=== PATIENT | male | born 1970 | race Caucasian/White ===

== ENCOUNTER 2022-03-26 22:23 | Inpatient (IN) | payer BC, OTHER ==
[2022-03-26 22:51] LABS: Basophils % (A) 0 %; Eosinophils # (A) 0.4 k/uL (0-0.7); Eosinophils % (A) 4 %; HCT 43.7 % (39.0-53.0); HGB 15.7 gm/dL (13.0-17.5); Lymphocytes # (A) 3.1 k/uL (1.0-4.8); Lymphocytes % (A) 32 %; MCH 31.3 pg (25.0-35.0); MCHC 35.9 g/dL (31.0-37.0); MCV 87.3 fL (80.0-100.0); Mean Platelet Volume 7.8; Monocytes # (A) 0.5 k/uL (0-1.0); Monocytes % (A) 5 %; Neutrophils # (A) 5.6 k/uL (1.3-7.7); Neutrophils % (A) 58 %; Platelet Count 172 k/uL (150-450); RDW 12.3 % (11.5-15.5); WBC 9.6 k/uL (3.8-10.6)
[2022-03-26 23:09] LABS: Albumin 4.3 g/dL (3.5-5.0); Calcium 9.4 mg/dL (8.4-10.2); Magnesium 1.8 mg/dL (1.6-2.3); Potassium 3.7 mmol/L (3.5-5.1); Total Bilirubin 0.3 mg/dL (0.2-1.3); Total Protein 6.7 g/dL (6.3-8.2)
[2022-03-26 23:13] LABS: INR 0.9 (<1.2); Partial Thromboplastin Time 25.8 sec (22.0-30.0)
--- NOTE | 2022-03-26 23:37 | XR ---
EXAMINATION TYPE: XR chest 2V DATE OF EXAM: 03/26/2022 COMPARISON: NONE HISTORY: Pain TECHNIQUE: 2 view FINDINGS: Heart and mediastinum are normal. Lungs are clear. Diaphragm is normal. Bony thorax is inta ct. There are chest leads. IMPRESSION: No active cardiopulmonary disease. Normal heart.
[2022-03-27] MEDS ORDERED: NITROGLYCERIN SL TABS 0.4 MG TAB SUBLINGUAL PRN ×2 (00:12→09:38)
--- NOTE | 2022-03-27 00:12 | ED ---
Chest Pain HPI - General Chief Complaint: Chest Pain Stated Complaint: Chest pain Time Seen by Provider: 03/26/22 22:26 Source: patient, EMS Mode of arrival: EMS Limitations: no limitations - History of Present Illness Initial Comments: This patient is a 52-year-old man who presents with complaint of chest pain. Patient states for the the past 4 nights he has been having pains every time he rides his stationary bike. Patient states his usual routine is to ride a bike following work. He states that 4 days ago he rode for about 5 minutes and then had substernal chest pain radiating to his back dyspnea and diaphoresis. He had to rest and it resolved. The next night he was able to ride about 10 minutes but had similar symptoms. With tonakash's episode, he states that the symptoms were much worse and lasting longer. Family then called EMS and brought him here. The patient states that the symptoms have somewhat resolved. MD Complaint: chest pain Onset/Timin -: days(s) Onset: during exertion Pain Location: substernal Pain Radiation: back Severity: severe Quality: aching Consistency: now resolved Improves With: rest Worsens With: exertion Anginal Symptoms: diaphoresis, dyspnea Treatments Prior to Arrival: aspirin - Related Data Allergies Allergy/AdvReac Type Severity Reaction Status Date / Time No Known Allergies Allergy Verified 03/26/22 22:28 Review of Systems ROS Statement: Those systems with pertinent positive or pertinent negative responses have been documented in the HPI. ROS Other: All systems not noted in ROS Statement are negative. Constitutional: Denies: fever, chills Respiratory: Reports: as per HPI. Denies: cough, dyspnea, wheezes, hemoptysis Cardiovascular: Reports: as per HPI, chest pain, dyspnea on exertion. Denies: palpitations, edema, syncope Gastrointestinal: Denies: abdominal pain, nausea, vomiting, diarrhea Genitourinary: Denies: dysuria, hematuria Musculoskeletal: Denies: back pain Skin: Denies: rash Neurological: Denies: headache, weakness, numbness Hematological/Lymphatic: Denies: easy bleeding EKG Findings - EKG Results: EKG: interpreted by [place], sinus rhythm (Rate 67 bpm), normal axis, normal QRS - Blocks, [place], Hypertrophy, ST Abn: Repolarization changes or abnormalities: ST or T wave suggestive of ischemia (T inversions in lead V3 and V4) Past Medical History Past Medical History: No Reported History History of Any Multi-Drug Resistant Organisms: None Reported Past Surgical History: No Surgical Hx Reported Past Psychological History: No Psychological Hx Reported Smoking Status: Current every day smoker Past Alcohol Use History: Occasional Past Drug Use History: Marijuana General Exam Limitations: no limitations General appearance: alert, in no apparent distress Head exam: Present: atraumatic, normocephalic Eye exam: Present: normal appearance. Absent: scleral icterus, conjunctival injection Neck exam: Present: normal inspection Respiratory exam: Present: normal lung sounds bilaterally. Absent: respiratory distress, wheezes, rales, rhonchi, stridor, chest wall tenderness, accessory muscle use Cardiovascular Exam: Present: regular rate, normal rhythm, normal heart sounds. Absent: systolic murmur, diastolic murmur, rubs, gallop GI/Abdominal exam: Present: soft. Absent: distended, tenderness, guarding, rebound, rigid, mass, pulsatile mass, hernia Extremities exam: Present: normal inspection, normal capillary refill. Absent: pedal edema, calf tenderness Back exam: Present: normal inspection. Absent: CVA tenderness (R), CVA tenderne ss (L) Neurological exam: Present: alert Skin exam: Present: warm, dry, intact, normal color. Absent: rash Course Vital Signs 03/26/22 03/26/22 03/27/22 22:29 22:43 00:01 Temperature 97.6 F Pulse Rate 73 64 64 Respiratory 18 18 16 Rate Blood Pressure 170/112 169/106 141/92 O2 Sat by Pulse 97 99 99 Oximetry Chest Pain [facility] Patient is 52-year-old man here with what sounds like reproducible angina. He is markedly hypertensive on arrival and radiation of the pain to the back prompted computed tomography scan to rule out dissection. Symptoms have resolved shortly after his workup started here. Patient will be admitted for serial enzymes, telemetry monitoring, cardiology consultation. Disposition Clinical Impression: Chest pain, Hypertension Disposition: ADMITTED IP TO THIS HOSP Condition: Good Instructions (If sedation given, give patient instructions): Chest Pain (ED) Is patient prescribed a controlled substance at d/c from ED?: No Referrals: Antwan Pereira DO [Primary Care Provider] - 1-2 days
--- NOTE | 2022-03-27 00:14 | CT ---
EXAM: CT Angiography Chest With Intravenous Contrast CLINICAL HISTORY: ITS.REASON CT Reason: chest pain/hypertension, ?dissection TECHNIQUE: Axial computed tomographic angiography images of the chest with intravenous contrast. CTDI is 14.59 mGy and DLP is 793 mGy-cm. This CT exam was performed using one or more of the following dose reduction techniques: automated exposure control, adjustment of the mA and/or kV according to patient size, and/or use of iterative reconstruction technique. MIP reconstructed images were created and reviewed. COMPARISON: No relevant prior studies available. FINDINGS: Limitations: Bilateral lung apices are excluded from the [id number]. Pulmonary arteries: No pulmonary embolism. Aorta: No acute findings. No thoracic aortic aneurysm. Lungs: No consolidation. Mild bilateral atelectasis. Subcentimeter pleural-based nodule in lingula is compatible with a lymph node. No suspicious pulmonary nodule. Pleural space: No significant effusion. No pneumothorax. Heart: Coronary artery calcification. Mediastinum: Small hiatal hernia. Bones/joints: No acute abnormality Soft tissues: No significant abnormality. Lymph nodes: See above. IMPRESSION: No acute CT findings in the chest. No thoracic aortic aneurysm or dissection. No pulmonary embolus. EXAM: CT Angiography Abdomen and Pelvis With Intravenous Contrast CLINICAL HISTORY: ITS.REASON CT Reason: chest pain/hypertension, ?dissection TECHNIQUE: Axial computed tomographic angiography images of the abdomen and pelvis with intravenous contrast. CTDI is 14.59 mGy and DLP is 793 mGy-cm. This CT exam was performed using one or more of the following dose reduction techniques: automated exposure control, adjustment of the mA and/or kV according to patient size, and/or use of iterative reconstruction technique. MIP reconstructed images were created and reviewed. COMPARISON: No relevant prior studies available. FINDINGS: VASCULATURE: Aorta: No acute findings. No abdominal aortic aneurysm. No dissection. Celiac trunk and mesenteric arteries: No acute findings. No occlusion or significant stenosis. Renal arteries: No acute findings. No occlusion or significant stenosis. Iliac arteries: No acute findings. No occlusion or significant stenosis. Lung bases: Please see dedicated chest CT report for details of intrathoracic findings. ABDOMEN: Liver: Subcentimeter focus of hypoattenuation in the liver is too small to characterize. Gallbladder and bile ducts: No significant abnormality. No calcified stones. No ductal dilation. Pancreas: No significant abnormality. No ductal dilation. Spleen: No significant abnormality. No splenomegaly. Adrenals: No significant abnormality. Kidneys and ureters: Prominent bilateral extrarenal pelves. No hydronephrosis. Stomach and bowel: No significant abnormality. No obstruction. PELVIS: Appendix: No findings to suggest acute appendicitis. Bladder: No significant abnormality. No mass. Reproductive: Unremarkable as visualized. ABDOMEN and PELVIS: Intraperitoneal space: No significant abnormality. No significant fluid collection. No free air. Bones/joints: No acute fracture. Soft tissues: Small fat-containing periumbilical hernia. Lymph nodes: No significant abnormality. No enlarged lymph nodes. IMPRESSION: No acute CT findings in the abdomen or pelvis. No abdominal aortic aneurysm or dissection.
[2022-03-27] MEDS ORDERED: ATORVASTATIN 80 MG TAB PO STA (03:07)
[2022-03-27] MEDS ORDERED: ASPIRIN 81 MG PO STA (03:08)
[2022-03-27] MEDS: NITROGLYCERIN OINT 1 INCH/GM PACKET TOPICAL SCH ×2 (03:14→05:30)
[2022-03-27] MEDS ORDERED: HEPARIN SODIUM 1,000 UN/ML (10ML VL) IV ONE (07:20)
[2022-03-27] MEDS ORDERED: HEPARIN SODIUM 1,000 UN/ML (10ML VL) IV PRN (07:20)
[2022-03-27] MEDS ORDERED: ALPRAZolam 0.25 MG TAB PO PRN (07:39)
[2022-03-27] MEDS ORDERED: ALPRAZolam 0.5 MG TAB PO PRN (07:39)
[2022-03-27] MEDS: SODIUM CHLORIDE 0.9% 1,000 ML in EMPTY BAG 1 BAG IV SCH (07:56)
[2022-03-27] MEDS: HEPARIN SOD,PORK IN 0.45% NACL 25,000 UNIT in 0.45% NACL 1 250ML.BAG IV SCH (08:08)
[2022-03-27] MEDS ORDERED: VERAPAMIL 2.5 MG/ML 2 ML AMP ONE (08:16)
[2022-03-27] MEDS ORDERED: HEPARIN SODIUM 1,000 UN/ML (10ML VL) ONE (08:17)
[2022-03-27] MEDS ORDERED: fentaNYL (PF) 50 MCG/ML 2 ML AMP ONE (08:17)
[2022-03-27 08:22] LABS: INR 0.9 (<1.2)
[2022-03-27 08:23] LABS: Partial Thromboplastin Time 25.1 sec (22.0-30.0)
[2022-03-27] MEDS ORDERED: SODIUM CHLORIDE 0.9% 1,000 ML IV ONE (08:37)
[2022-03-27] MEDS ORDERED: MIDAZOLAM 2 MG/2 ML VIAL IVP ONE (08:40)
[2022-03-27] MEDS ORDERED: fentaNYL (PF) 50 MCG/ML 2 ML AMP IVP ONE (08:40)
[2022-03-27] MEDS ORDERED: ASPIRIN 81 MG ONE (08:42)
[2022-03-27] MEDS ORDERED: LIDOCAINE 1% INJ 10MG/ML (30 ML VIAL-PF) SQ ONE (08:42)
[2022-03-27] MEDS ORDERED: VERAPAMIL SYRINGE (5 MG/10 ML) INTRAARTER ONE (08:43)
[2022-03-27] MEDS ORDERED: HEPARIN SODIUM 1,000 UN/ML (10ML VL) IVP ONE ×2 (08:45→08:57)
--- NOTE | 2022-03-27 08:47 | P.CRDCN ---
History of Present Illness History of present illness: HISTORY OF PRESENTING ILLNESS This is a pleasant 52-year-old male past medical history significant for chronic nicotine dependence. 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 We have been asked to see in consultation for chest pain. Patient presents to the emergency department with worsening chest discomfort. He states on Wednesday his chest discomfort began when he was riding a stationary bike at home. He states within 3 minutes he had midsternal chest discomfort, radiating to bilateral arms. He states it resolved with rest and did not recur. However over the past week he has been having increased chest discomfort with exercise with relief with rest and has noticed it has gradually increased in intensity and lasted longer after exercise. Yesterday he was riding his stationary bike, had midsternal chest discomfort, radiating to his back and bilateral arms. He had associated diap horesis and shortness of breath. He states that it improved with rest. He denies any history of CAD, [place], stroke, seizures, hypertension, diabetes. He denies any family history of coronary disease, he states his father has a history of hypertension. He is a current every day smoker. Denies any alcohol or illicit drug use. DIAGNOSTICS * EKG reveals sinus rhythm, heart rate 67, T wave inversions in leads V2-V5. No prior EKGs to compare. * Telemetry tracings indicate sinus rhythm * Chest xray no acute cardiopulmonary process * Thoracic CT reported no abnormalities. * In 2017 patient did have a exercise stress test in the office which was negative for stress-induced ischemia. * Echocardiogram in 2017 revealed EF of 55%, mild mitral regurgitation, mild tricuspid regurgitation * Laboratory reviewed, troponin negative, repeat 0.10, 0.06, sodium 136, potassium 3.7, BUN 14, serum creatinine 1.2, magnesium 1.8, CBC unremarkable * Current home medications include none REVIEW OF SYSTEMS At the time of my exam: CONSTITUTIONAL: Denies fever or chills. CARDIOVASCULAR: Denies chest pain, shortness of breath, orthopnea, PND or palpitations. RESPIRATORY: Denies cough. GASTROINTESTINAL: Denies abdominal pain, diarrhea, constipation, nausea or vomiting. MUSCULOSKELETAL: Denies myalgias. NEUROLOGIC: Denies numbness, tingling, headacbe or weakness. ENDOCRINE: Denies fatigue, weight change, polydipsia or polyurina. GENITOURINARY: Denies burning, hematuria or urgency with micturation. HEMATOLOGIC: Denies history of anemia or bleeding. PHYSICAL EXAMINATION Blood pressure 121/81, heart 65, afebrile, saturations 95% on room air CONSTITUTIONAL: No apparent distress. HEENT: Head is normocephalic. Pupils are equal, round. Sclerae anicteric. Mucous membranes of the mouth are moist. No JVD. No carotid bruit. CHEST EXAMINATION: Lungs are clear to auscultation. No chest wall tenderness is noted on palpation or with deep breathing. HEART EXAMINATION: Regular rate and rhythm. S1, S2 heard. No murmurs, gallops or rub. ABDOMEN: Soft, nontender. Positive bowel sounds. EXTREMITIES: 2+ peripheral pulses, no lower extremity edema and no calf tenderness. NEUROLOGIC EXAMINATION: Patient is awake, alert and oriented x3. ASSESSMENT NSTEMI Chronic nicotine dependence PLAN IV heparin Aspirin, statin Check Lipid panel and hemoglobin A1C Obtain 2D echocardiogram and doppler study to assess cardiac structure and function. Plan for cardiac catheterization today with Dr. Cuba. I have discussed the risks, benefits and alternative therapies for the above- mentioned procedure and for both sedation/analgesia as well as necessary blood product administration, if indicated, as they pertain to this patient. The patient has indicated understanding and acceptance of the risks and procedures discussed. Questions have been answered appropriately and he is agreeable to move forward with the above-stated procedure. Smoking cessation discussed with the patient and highly recommended. Further recommendations based on clinical course Nurse practitioner note has been reviewed by physician. Signing provider agrees with the documented findings, assessment, and plan of care. Past Medical History Past Medical History: No Reported History History of Any Multi-Drug Resistant Organisms: None Reported Past Surgical History: No Surgical Hx Reported Past Psychological History: No Psychological Hx Reported Smoking Status: Current every day smoker Past Alcohol Use History: Occasional Past Drug Use History: Marijuana Medications and Allergies Home Medications Medication Instructions Recorded Confirmed Type Cholecalciferol [Vitamin D3 (25 50 mcg PO DAILY 03/27/22 03/27/22 History Mcg = 1000 Iu)] Glucosamine/Chondr Ramos A Sod [Osteo 1 tab PO DAILY 03/27/22 03/27/22 History Bi-Flex Caplet] Turmeric Root Extract [Turmeric] 500 mg PO DAILY 03/27/22 03/27/22 History Allergies Allergy/AdvReac Type Severity Reaction Status Date / Time No Known Allergies Allergy Verified 03/27/22 07:31 Physical Exam Vitals: Vital Signs Temp Pulse Pulse Resp BP BP Pulse Ox 03/27/22 02:38 97.5 F L 64 17 136/89 95 03/27/22 01:21 98.1 F 60 16 125/89 99 03/27/22 00:01 64 16 141/92 99 03/26/22 22:43 64 18 169/106 99 03/26/22 22:29 97.6 F 73 18 170/112 97 Intake and Output 03/26/22 03/27/22 03/27/22 22:59 06:59 14:59 Other: # Voids 1 Weight 92.533 kg 92.533 kg Results 03/26/22 22:40 03/26/22 22:40 Cardiac Enzymes 03/26/22 03/26/22 03/27/22 Range/Units 22:40 22:40 01:28 AST 26 (17-59) U/L Troponin I 0.014 0.106 H* (0.000-0.034) ng/mL 03/27/22 Range/Units 06:24 AST (17-59) U/L Troponin I 0.066 H* (0.000-0.034) ng/mL Coagulation 03/26/22 Range/Units 22:40 PT 10.0 (9.0-12.0) sec APTT 25.8 (22.0-30.0) sec CBC 03/26/22 Range/Units 22:40 WBC 9.6 (3.8-10.6) k/uL RBC 5.00 (4.30-5.90) m/uL Hgb 15.7 (13.0-17.5) gm/dL Hct 43.7 (39.0-53.0) % Plt Count 172 (150-450) k/uL Comprehensive Metabolic Panel 03/26/22 Range/Units 22:40 Sodium 136 L (137-145) mmol/L Potassium 3.7 (3.5-5.1) mmol/L Chloride 102 (98-107) mmol/L Carbon Dioxide 23 (22-30) mmol/L BUN 14 (9-20) mg/dL Creatinine 1.23 (0.66-1.25) mg/dL Glucose 168 H (74-99) mg/dL Calcium 9.4 (8.4-10.2) mg/dL AST 26 (17-59) U/L ALT 24 (4-49) U/L Alkaline Phosphatase 84 (38-126) U/L Total Protein 6.7 (6.3-8.2) g/dL Albumin 4.3 (3.5-5.0) g/dL Current Medications Generic Name Dose Route Start Last Admin Trade Name Freq PRN Reason Stop Dose Admin Aspirin 325 mg 03/28/22 09:00 03/27/22 03:10 Aspirin 325 Mg Tab PO Not Given DAILY [facility] Heparin Sodium (Porcine) 0 unit 03/27/22 07:20 Heparin Sodium 1,000 Un/Ml (10ml Vl) IV PER PROTOCOL PRN Low PTT Protocol Heparin Sodium/Sodium Chloride 250 mls @ 10.003 mls/hr 03/27/22 07:30 25,000 unit/ Sodium Chloride IV .Q24H [facility] Protocol 10.81 UNITS/KG/HR Nitroglycerin 0.4 mg 03/27/22 00:12 Nitroglycerin Sl Tabs 0.4 Mg Tab SUBLINGUAL Q5M PRN Chest Pain Nitroglycerin 1 inch 03/27/22 03:06 03/27/22 05:30 Nitroglycerin Oint 1 Inch/Gm Packet TOPICAL Not Given Q6HR [facility] Intake and Output 03/26/22 03/27/22 03/27/22 22:59 06:59 14:59 Other: # Voids 1 Weight 92.533 kg 92.533 kg 03/26/22 22:40 03/26/22 22:40
[2022-03-27] MEDS ORDERED: PRASUGREL 10 MG TAB ONE (08:50)
[2022-03-27] MEDS ORDERED: PRASUGREL 10 MG TAB PO ONE (08:53)
[2022-03-27] MEDS ORDERED: NITROGLYCERIN 1000MCG/10ML SYRINGE INTRACORON ONE ×2 (09:00→09:06)
[2022-03-27] MEDS ORDERED: IOPAMIDOL-370 125ML BTL INJ ONE (09:11)
[2022-03-27] MEDS ORDERED: MAG HYDROX/AL HYDROX/SIMETH 30 ML CUP PO PRN (09:38)
[2022-03-27] MEDS ORDERED: ZOLPIDEM 5 MG TAB PO PRN (09:38)
[2022-03-27] MEDS ORDERED: RX INFO: IV CONTRAST WAS GIVEN 1 EACH MISC MISCELLANE PRN (09:38)
[2022-03-27] MEDS ORDERED: ATROPINE SULFATE 0.1 MG/ML 10ML SYRINGE IV PRN (09:38)
--- NOTE | 2022-03-27 09:38 | P.PRCINT ---
Percutaneous Coronary Int. - Percutaneous Coronary Intervention Percutaneous Coronary Intervention: PROCEDURES PERFORMED: Left heart catheterization, bilateral coronary angiography, PCI mid LAD with a 3.5 x 12mm Xience JANES INDICATION: Non-STEMI CONSENT:I have discussed the risks, benefits and alternative therapies for the above-mentioned procedure and for both sedation/analgesia as well as necessary blood product administration, if indicated, as they pertain to this patient. The patient has indicated understanding and acceptance of the risks and procedures discussed. PROCEDURE: After the risks, benefits and alternatives of the above mentioned procedure explained in detail with the patient, informed consent was obtained. Patient was taken to the catheterization lab and prepped and draped in usual fashion. 1% lidocaine was used to anesthetize the right radial artery. A 6- Scottish sheath was placed in the right radial artery using modified Seldinger technique. Left coronary angiography was performed with a 5-Scottish JL 3.5 catheter and right coronary angiography was performed with a 5-Scottish AR2 cath eter in various views. A 5-Scottish FR5 catheter was inserted into the left ventricle and pressure measurements were obtained. The decision was made to perform PCI of LAD. A 6-Scottish CLS 3.5 guide was used to engage the left main. Heparin was given for ACT greater than 250. A 0.014 BMW wire was advanced into the distal LAD. A 3.25 x 8 mm balloon was used to predilate the lesion. A 3.5 x 12 mm Xience JANES was deployed in the mid LAD. The wire was pulled and final angiograms were performed. Preintervention there was 99% stenosis with RUSS 2 flow and postintervention there was 0% stenosis with RUSS 3 flow. The right radial sheath was removed and a TR band was placed with hemostasis achieved. The patient tolerated the procedure well. Patient was transported back to the post catheterization holding area in stable condition. Conscious Sedation: Patient was monitored under the direct supervision of vision of myself for conscious sedation using Versed and fentanyl for a total duration of 29 minutes HEMODYNAMICS: Aortic: 112/78 LV: 108/3, LVEDP 11 SELECTIVE CORONARY ARTERIOGRAPHY: LEFT MAIN: The left main is a large caliber vessel which bifurcates into the LAD and circumflex. There is no significant stenosis. LEFT ANTERIOR DESCENDING CORONARY ARTERY: LAD is a large caliber vessel which wraps around to the apex. There is a ostial diagonal 1 85-90% stenosis. There is a mid LAD 99% stenosis just after a small caliber diagonal 2 branch. Otherwise there are mild luminal irregularities. LEFT CIRCUMFLEX CORONARY ARTERY: Left circumflex is a moderate caliber vessel without significant stenosis. RIGHT CORONARY ARTERY: The right coronary artery is a large caliber vessel which gives off a PDA and PLV branch and is the dominant vessel. There is proximal and mid RCA 30% stenosis. FINAL IMPRESSION: 1. CAD as described above including ostial diagonal 1 85-90% stenosis, mid LAD 99% stenosis and proximal mid RCA 30% stenosis. 2. S/p PCI mid LAD with a 3.5 x 12mm Xience JANES 3. Normal left sided filling pressures PLAN: 1. Aggressive risk factor modification per most recent ACC/AHA guidelines. 2. Continue dual antiplatelets with aspirin and Effient for 12 months. 3. Given ostial location with possible interaction with proximal LAD, would consider medical therapy of diagonal 1 stenosis. If continues to have angina may consider PCI.
[2022-03-27] MEDS: METOPROLOL SUCCINATE (ER) 25 MG TAB.ER.24H PO SCH (12:05)
--- NOTE | 2022-03-27 12:29 | CA ---
Transthoracic Echo Report Name: Romario Villa Age: 52 Gender: M : 1970 Exam Date: 03/27/2022 10:20 Exam Location: [facility] Ht (in): 60 Wt (lb): 204 Ordering Physician: Milly Medrano Attending/Referring Phys: Profile Grinder Marisa Do, ABEL Procedure CPT: Indications: chest pain, elevated troponin Cardiac Hx: Technical Quality: Contrast 1: N/A Total Dose (mL): Contrast 2: Total Dose (mL): MEASUREMENTS (Male / Female) Normal Values 2D ECHO LV Diastolic Diameter PLAX 5.0 cm 4.2 - 5.9 / 3.9 - 5.3 cm LV Systolic Diameter PLAX 3.5 cm IVS Diastolic Thickness 1.2 cm 0.6 - 1.0 / 0.6 - 0.9 cm LVPW Diastolic Thickness 1.2 cm 0.6 - 1.0 / 0.6 - 0.9 cm LV Relative Wall Thickness 0.5 RV Internal Dim ED PLAX 2.8 cm LA Systolic Diameter LX 3.3 cm 3.0 - 4.0 / 2.7 - 3.8 cm LA Volume 74.2 cm??? 18 - 58 / 22 - 52 cm??? M-MODE Aortic Root Diameter MM 3.6 cm LA Systolic Diameter MM 4.0 cm LA Ao Ratio MM 1.1 MV E Point Septal Separation 0.9 cm AV Cusp Separation MM 1.9 cm DOPPLER MV Area PHT 4.0 cm??? Mitral E Point Velocity 73.3 cm/s Mitral A Point Velocity 96.5 cm/s Mitral E to A Ratio 0.8 MV Deceleration Time 190.6 ms MV E' Velocity 7.6 cm/s Mitral E to MV E' Ratio 9.6 FINDINGS Left Ventricle Left ventricular ejection fraction is estimated at 50-55%. Mildly increased left ventricular wall thickness. Right Ventricle Normal right ventricular size and function. Right Atrium Normal right atrial size. Left Atrium Moderately increased left atrial volume. Mitral Valve Mitral valve thickened. Mild mitral regurgitation. Aortic Valve Trileaflet aortic valve. Tricuspid Valve Structurally normal tricuspid valve. Mild tricuspid regurgitation. Pulmonic Valve Structurally normal pulmonic valve. Pericardium Normal pericardium. Aorta Normal size aortic root and proximal ascending aorta. CONCLUSIONS Left ventricular ejection fraction 50-55% Mild increased left ventricular wall thickness Moderately dilated left atrium Mild mitral regurgitation Mild tricuspid regurgitation Previewed by: Dr. Leo Cuba DO (Electronically Signed) Final Date: 27 March 2022 12:28
[2022-03-27 12:51] VITALS: BMI 29.2
--- NOTE | 2022-03-27 16:47 | P.HPIM ---
History of Present Illness H&P Date: 03/27/22 Chief Complaint: Chest pain This is a very pleasant 52-year-old patient who follows with Dr. Pereira. 5 days ago patient started off episode of chest pain that lasted about 5 minutes and went his arm. This was while doing a stationary bike. Next day his Symptoms are slightly worse. By the following day Wednesday with any activity started having chest pain going down his arms. Some shortness of breath. Last tetanus symptoms progressively became much worse. Patient to call in a sweat. He felt as a Cardizem on his chest and back. Short of breath. Came into the E R. T waves in the ER showed flipped T waves. Earlier today patient was taken to the prosthetics lab technician by cardiology was found to have ostial diagnosis 85-90% mid LAD 99% stenosis in proximal RCA 30% stenosis. LAD was stented. By Dr. Cuba. Postprocedure laying in bed. Comfortable. Review of systems: GEN.: Tired EYES: None HEENT: None NECK: None RESPIRATORY: [As above CARDIOVASCULAR: As above GASTROINTESTINAL: None GENITOURINARY: None MUSCULOSKELETAL: None LYMPHATICS: None HEMATOLOGICAL: None PSYCHIATRY: None NEUROLOGICAL: None Past medical history to include: Unremarkable Social history: Smoking a pack a day average for last 30 8T is. 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 Alcohol occasionally. edible marijuana. Family history: Reviewed, noncontributory to presentation Physical examination: VITAL SIGNS: 97.8, 65, 18, 121/81, 95% room air GENERAL: BMI 29.3, laying in bed awake, comfortable. EYES: Pupils equal. Conjunctiva normal. HEENT: External appearance of nose and ears normal, oral cavity grossly normal. NECK: JVD not raised; masses not palpable. HEART: First and second heart sounds are normal; no edema. LUNGS: Respiratory rate normal; fair air entry. ABDOMEN: Soft, nontender, liver spleen not palpable, no masses palpable. PSYCH: Alert and oriented x3; mood and affect normal. MUSCULOSKELETAL:No Clubbing/cyanosis;muscles-grossly intact NEUROLOGICAL: Cranial nerves grossly intact; no facial asymmetry, power and sensation grossly intact. LYMPHATICS: No lymph nodes palpable in the axilla and neck INVESTIGATIONS, reviewed in the clinical context: 2-D echocardiogram: EF 50 have and 55%. WBC 9.6 hemoglobin 15.7 platelets 172 potassium 3.7 creatinine 1.23 Troponin I 0.014, 0.106, 0.066 EKG tracing personally reviewed by me-normal sinus rhythm. Inverted T waves from V2/V5 Chest x-ray film personally reviewed by me-unremarkable aotro thoracic CT: Remarkable Assessment and plan: -Acute non-Q wave myocardial infarction. Aspirin, IV heparin. Cardiology consultation. -Emergent cardiac cath showing CAD, with stent to LAD Aspirin, Toprol-XL, Effient, Lipitor -IV heparin monitoring Follow PTT -Chronic nicotine dependence, cigarette smoker Nicotine patch Status post cardiac catheter intervention to LAD. Aspirin, beta yoanna, Lipito r, Effient. Nicotine patch. Care was discussed with the patient and at the bedside. Past Medical History Past Medical History: No Reported History History of Any Multi-Drug Resistant Organisms: None Reported Past Surgical History: No Surgical Hx Reported Past Psychological History: No Psychological Hx Reported Smoking Status: Current every day smoker Past Alcohol Use History: Occasional Past Drug Use History: Marijuana Medications and Allergies Home Medications Medication Instructions Recorded Confirmed Type Cholecalciferol [Vitamin D3 (25 50 mcg PO DAILY 03/27/22 03/27/22 History Mcg = 1000 Iu)] Glucosamine/Chondr Ramos A Sod [Osteo 1 tab PO DAILY 03/27/22 03/27/22 History Bi-Flex Caplet] Turmeric Root Extract [Turmeric] 500 mg PO DAILY 03/27/22 03/27/22 History Allergies Allergy/AdvReac Type Severity Reaction Status Date / Time No Known Allergies Allergy Verified 03/27/22 07:31 Physical Exam Vitals: Vital Signs Temp Pulse Pulse Pulse Resp BP BP 03/27/22 07:00 97.8 F 65 18 121/81 03/27/22 02:38 97.5 F L 64 17 136/89 03/27/22 01:21 98.1 F 60 16 125/89 03/27/22 00:01 64 16 141/92 03/26/22 22:43 64 18 169/106 03/26/22 22:29 97.6 F 73 18 170/112 Pulse Ox 03/27/22 07:00 95 03/27/22 02:38 95 03/27/22 01:21 99 03/27/22 00:01 99 03/26/22 22:43 99 03/26/22 22:29 97 Intake and Output 03/26/22 03/27/22 03/27/22 22:59 06:59 14:59 Intake Total 800 Output Total 300 Balance 500 Intake: IV 800 Output: Urine 300 Other: # Voids 1 Weight 92.533 kg 92.533 kg Results CBC & Chem 7: 03/26/22 22:40 03/26/22 22:40 Labs: Abnormal Lab Results - Last 24 Hours (Table) 03/26/22 03/27/22 03/27/22 Range/Units 22:40 01:28 06:24 Sodium 136 L (137-145) mmol/L Glucose 168 H (74-99) mg/dL Troponin I 0.106 H* 0.066 H* (0.000-0.034) ng/mL Thrombosis Risk Factor Assmnt - Choose All That Apply Each Factor Represents 1 point: Age 41-60 years, Obesity (BMI >25) Thrombosis Risk Factor Assessment Total Risk Factor Score: 2 Thrombosis Risk Factor Assessment Level: Low Risk
[2022-03-27] MEDS ORDERED: ATORVASTATIN 80 MG TAB PO SCH (21:00)
[2022-03-27] MEDS: NICOTINE 21MG/24HR PATCH TRANSDERM SCH (22:14)
[2022-03-28 05:45] VITALS: PULSE 58
[2022-03-28] MEDS: HEPARIN SOD,PORK IN 0.45% NACL 25,000 UNIT in 0.45% NACL 1 250ML.BAG IV SCH (05:46)
[2022-03-28] MEDS: SODIUM CHLORIDE 0.9% 1,000 ML in EMPTY BAG 1 BAG IV SCH (05:46)
[2022-03-28] MEDS ORDERED: HEPARIN SODIUM,PORCINE 2,500 UNIT in SODIUM CHLORIDE 0.9% 250 ML IRRIGATION PRN (07:00)
[2022-03-28] MEDS ORDERED: HEPARIN SODIUM,PORCINE 10,000 UNIT in SODIUM CHLORIDE 0.9% 1,000 ML IRRIGATION PRN (07:00)
[2022-03-28] MEDS: METOPROLOL SUCCINATE (ER) 25 MG TAB.ER.24H PO SCH (08:39)
[2022-03-28] MEDS: NICOTINE 21MG/24HR PATCH TRANSDERM SCH (08:39)
[2022-03-28] MEDS ORDERED: ASPIRIN 325 MG TAB PO SCH (09:00)
[2022-03-28] MEDS ORDERED: ASPIRIN 81 MG PO SCH (09:00)
[2022-03-28] MEDS ORDERED: PRASUGREL 10 MG TAB PO SCH (09:00)
[2022-03-28 10:48] VITALS: BP 125/77; RESP 16; TEMP 98.7
[2022-03-28 11:17] LABS: African American GFR (CKD) >90 (>60 ml/min/1.73 sqM); Anion Gap 9 mmol/L; Blood Urea Nitrogen 12 mg/dL (9-20); Calcium 9.1 mg/dL (8.4-10.2); Carbon Dioxide 24 mmol/L (22-30); Chloride 105 mmol/L (98-107); Glucose 92 mg/dL (74-99); Non-African American GFR(CKD) >90 (>60 ml/min/1.73 sqM); Potassium 4.2 mmol/L (3.5-5.1); Sodium 138 mmol/L (137-145)
--- NOTE | 2022-03-28 11:59 | P.PN ---
Subjective Progress Note Date: 03/28/22 Patient initially presented to the hospital with complaints of chest pain. He underwent cardiac catheterization yesterday and was found to have multivessel coronary artery disease including the ostial diagonal 1 85% to 90% stenosis, mid LAD 99% stenosis and proximal mid RCA 30% stenosis. Patient underwent PCI to the mid LAD. He is on dual antiplatelet therapy with aspirin and Effient to be continued for one year. His echocardiogram showed a low normal LV function with an ejection fraction of 50-55% and mild mitral regurgitation and mild tricuspid regurgitation. Patient is cleared to be discharged from cardiac standpoint and follow-up in office in one week Objective - Vital Signs Vital signs: Vital Signs Temp 98.7 F 03/28/22 08:00 Pulse 58 L 03/28/22 08:00 Resp 16 03/28/22 08:00 BP 125/77 03/28/22 08:00 Pulse Ox 97 03/28/22 08:29 FiO2 21 03/27/22 19:15 Intake & Output 03/27/22 03/28/22 03/28/22 18:59 06:59 18:59 Intake Total 2340 485 236 Output Total 1974 1240 Balance 365 -755 236 Weight 92.533 kg Intake: IV 800 Intake, IV Titration 1000 Amount Sodium Chloride 0.9% 1, 1000 000 ml In Empty Bag 1 bag @ 1 ML/KG/HR 92.533 mls/ hr IV .[id number] [facility] Rx#: [id number] Oral 540 485 236 Output: Urine 1974 1240 Other: Voiding Method Urinal Urinal # Voids 1 3 - Exam PHYSICAL EXAM: VITAL SIGNS: Reviewed. GENERAL: Well-developed in no acute distress. HEENT: Head is normocephalic. Pupils are equal, round. Sclerae anicteric. Mucous membranes of the mouth are moist. NECK: Supple. No JVD or thyromegaly RESPIRATORY: Respirations even and unlabored. Lungs diminished to auscultation bilaterally. CARDIO: Regular rate and rhythm. S1 and S2 heard. No murmur or gallops. EXTREMITIES: Normal range of motion. No clubbing or cyanosis. Peripheral pulses intact. Negative for bilateral lower extremity edema NEURO: Orientated to person, time, mood is appropriate Puncture site right radial. Soft no ecchymosis or hematoma - Labs CBC & Chem 7: 03/26/22 22:40 03/28/22 10:46 Labs: Abnormal Lab Results - Last 24 Hours (Table) 03/27/22 Range/Units 12:24 APTT 33.8 H (22.0-30.0) sec Assessment and Plan Assessment: Non-STEMI Multivessel coronary artery disease status post angioplasty to the mid LAD Plan: Continue with dual platelet therapy for one year aspirin and Effient Continue with lifestyle modifications Patient is clear for discharge from a cardiac standpoint The above impression and plan of care have been discussed and directed by the signing physician. Marry Pyle, nurse practitioner, acting as scribe for signing physician.
[2022-03-28 16:39] LABS: Chol/HDL Ratio 2.61 Ratio; LDL Cholesterol,Calculated 58.3 mg/dL (0.0-131.0)
--- NOTE | 2022-03-28 19:51 | P.DS ---
Providers Date of admission: 03/27/22 12:18 Expected date of discharge: 03/28/22 Attending physician: Randell Solares Consults: 03/27/22 00:12 Consult Physician Routine Consulting Provider: Jayden Hamlin Consult Reason/Comments: chest pain Do you want consulting provider notified?: Yes 03/27/22 09:38 Consult Physician Routine Consulting Provider: Cardiology Dean Consult Reason/Comments: Post Interventional Patient Do you want consulting provider notified?: Already Contacted Primary care physician: Antwan Pereira [facility] Course: Final Diagnosis -Acute non-Q wave myocardial infarction. -Emergent cardiac cath showing CAD, with stent to LAD -Chronic nicotine dependence, cigarette smoker -full code Discharge disposition Patient is being discharged in a stable condition with guarded prognosis to home. Patient will follow-up with Dr. Pereira in the outpatient setting upon discharge. Patient is to follow up outpatient with cardiology and continue c urrent cardiac medications. Total time taken is greater than 35 minutes. Hospital course This is an 52-year-old male who was recently admitted with chest pain and underwent cardiac catheterization with successful PCI stenting to the LAD. Cardiology has cleared the patient recommending maximizing medication management with follow up in 1 week. Patient reports to feeling well and would like to go home. Currently no reports of chest pain, shortness of breath, or palpitations. Patient is afebrile. No reports of nausea or vomiting and patient is tolerating diet. Patient will be discharged home today. Guarded prognosis. Please refer to previous dictations and other consultation notes for further hpi. On exam vital signs are stable. Cardio S1, S2 are muffled. Respiratory system shows diminished breath sounds at the bases with no wheezing or rhonchi noted. Abdomen is soft and nontender. Nervous system shows no focal deficits Please refer to medication reconciliation sheet for a list of medications. The impression and plan of care has been dictated as a scribe by Gretchen Segura, Nurse Practitioner as directed. Dr. Kike MD I have performed a history and examination and MDM of this patient, discussed the same with the dictator, and will be documented as a scribe. Based on total visit time, I have performed more than 50% of the visit. Patient Condition at Discharge: Good Plan - Discharge Summary New Discharge Prescriptions: New Prasugrel [Effient] 10 mg PO DAILY #30 tablet Atorvastatin [Lipitor] 80 mg PO DAILY 30 Days #30 tab Metoprolol Succinate (ER) [Toprol XL] 25 mg PO DAILY 30 Days tab Aspirin EC [Ecotrin Low Dose] 81 mg PO DAILY 30 Days tab Continue Turmeric Root Extract [Turmeric] 500 mg PO DAILY Glucosamine/Chondr Ramos A Sod [Osteo Bi-Flex Caplet] 1 tab PO DAILY Cholecalciferol [Vitamin D3 (25 Mcg = 1000 Iu)] 50 mcg PO DAILY Discharge Medication List Cholecalciferol [Vitamin D3 (25 Mcg = 1000 Iu)] 50 mcg PO DAILY 03/27/22 [History] Glucosamine/Chondr Ramos A Sod [Osteo Bi-Flex Caplet] 1 tab PO DAILY 03/27/22 [History] Turmeric Root Extract [Turmeric] 500 mg PO DAILY 03/27/22 [History] Aspirin EC [Ecotrin Low Dose] 81 mg PO DAILY 30 Days tab 03/28/22 [Rx] Atorvastatin [Lipitor] 80 mg PO DAILY 30 Days #30 tab 03/28/22 [Rx] Metoprolol Succinate (ER) [Toprol XL] 25 mg PO DAILY 30 Days tab 03/28/22 [Rx] Prasugrel [Effient] 10 mg PO DAILY #30 tablet 03/28/22 [Rx] Follow up Appointment(s)/Referral(s): Antwan Pereira DO [Primary Care Provider] - 1-2 days (Offices are closed at this time. Please call Wednesday to get a post hospital follow up appointment.) Leo Cuba DO [STAFF PHYSICIAN] - 04/06/22 3:00 pm (WEDNESDAY YOU WILL NEED A GLOBAL CARE REFERRAL FROM PCP TO SEE LEAD [facility]) Patient Instructions/Handouts: How to Stop Smoking (GEN), After Radial Heart Catheterization (GEN) Activity/Diet/Wound Care/Special Instructions: Activity limited until follow up follow up with pcp on discharge follow up with cardiology as scheduled continue to avoid tobacco use follow heart healthy diet take medications as prescribed Discharge Disposition: HOME SELF-CARE
== END 2022-03-28 13:10 | disposition home or self-care (01) | DRG 247 ==
LOC: EC 22:23 → 6NMEDSUR 03-27 00:12 → 3SCARD 03-27 09:19 → OBSVTOIN 03-27 12:18
PROVIDERS: ADMIT Hospitalist; ATTEND Hospitalist
PROC: 4A023N7 Measurement of Cardiac Sampling and Pressure, Left Heart, Percutaneous Approach (ICD-10-PCS; principal; 2022-03-27 07:30)
PROC: 027034Z Dilation of Coronary Artery, One Artery with Drug-eluting Intraluminal Device, Percutaneous Approach (ICD-10-PCS; principal; 2022-03-27 07:30)
PROC: B2111ZZ Fluoroscopy of Multiple Coronary Arteries using Low Osmolar Contrast (ICD-10-PCS; principal; 2022-03-27 07:30)
DX: I21.4 Non-ST elevation (NSTEMI) myocardial infarction (principal); E66.9 Obesity, unspecified; Z68.29 Body mass index [BMI] 29.0-29.9, adult; I25.10 Atherosclerotic heart disease of native coronary artery without angina pectoris; I08.1 Rheumatic disorders of both mitral and tricuspid valves; I10 Essential (primary) hypertension; F17.210 Nicotine dependence, cigarettes, uncomplicated; Z71.6 Tobacco abuse counseling; Z79.899 Other long term (current) drug therapy; Z71.3 Dietary counseling and surveillance
CPT/HCPCS: 36415; 71046; 71275; 74174; 80048; 80053; 80061; 83036; 83735; 84484; 85025; 85610; 85730; 93005; 93306; 93458; 94760; 99285

== ENCOUNTER → 2023-01-25 | Outpatient (CLI) | payer BC ==
--- NOTE | 2023-01-25 12:11 | CT ---
EXAMINATION TYPE: CT urogram wo/w con DATE OF EXAM: 01/25/2023 COMPARISON: 03/26/2022 HISTORY: 52-year-old male R31.0, Gross hematuria TECHNIQUE: Contiguous axial scanning of the abdomen and pelvis performed without and with IV Contrast , patient injected with 100 mL of Isovue 300. Delayed images through the kidneys and bladder were obt ained. Coronal/sagittal reconstructions performed. 3-D reconstructions generated on a dedicated [employer] workstation. CT DLP: 2314.5 mGycm Automated exposure control for dose reduction was used. FINDINGS: Heart normal size without pericardial effusion. Lung bases clear without pleural effusion. RCA bass ry artery calcifications are present. 7 mm cyst anterior mid liver. Portal venous system is patent. No biliary ductal dilatation. Gallbladder, adrenal glands, spleen with hilar splenule, and pancreas within normal limits. There are bilateral extrarenal pelves. No nephrolithiasis. No calyceal dilatation to suggest hydronep hrosis. No suspicious renal lesion is seen. The mid to distal right ureter remains nonopacified limiting its evaluation. Opacified portions show no gross abnormality. There is mural nodularity along the left lateral bladder wall measuring 1.4 cm and 1.0 cm. No dilated small bowel, free fluid, or free air. No mesenteric or retroperitoneal lymphadenopathy. Th ere is mild stool burden. Minimal sigmoid diverticulosis. Normal appendix. Small fatty umbilical fabrice ia. Prostate gland mildly enlarged at 5.0 cm wide. No abnormal fluid collection in the pelvis or pelvic l ymphadenopathy. Bones: Facet arthropathy lower lumbar spine. Mild degenerative disc disease throughout. IMPRESSION: 1. MURAL BASED SOFT TISSUE NODULARITY ALONG THE LEFT LATERAL WALL OF THE BLADDER MEASURING 1.4 CM AND 1.0 CM. UROTHELIAL CARCINOMA SHOULD BE EXCLUDED. 2. BILATERAL EXTRARENAL PELVES. NO CALYCEAL DILATATION TO SUGGEST HYDRONEPHROSIS. NO NEPHROLITHIASIS OR SUSPICIOUS RENAL MASS. 3. SEGMENTS OF THE MID TO DISTAL RIGHT URETER REMAIN NONOPACIFIED LIMITING EVALUATION. OPACIFIED PORT IONS SHOW NO GROSS ABNORMALITY. 4. MILD PROSTATOMEGALY OF 5.0 CM WIDE. 5. SMALL FATTY UMBILICAL HERNIA.
== END | disposition home or self-care (01) ==
LOC: RADCTMAIN 08:24
PROVIDERS: ATTEND Urology
DX: N40.0 Benign prostatic hyperplasia without lower urinary tract symptoms (principal); K42.9 Umbilical hernia without obstruction or gangrene; N32.89 Other specified disorders of bladder; R31.0 Gross hematuria
CPT/HCPCS: 74178; 74400; Q9967

== ENCOUNTER → 2023-02-04 | Outpatient (CLI) | payer BC ==
[2023-02-04 20:05] LABS: Basophils # (A) 0.04 X 10*3/uL (0.00-0.10); Basophils % (A) 0.6 %; Eosinophils # (A) 0.13 X 10*3/uL (0.04-0.35); HCT 43.3 % (39.6-50.0); HGB 14.8 d/dL (13.0-17.0); Lymphocytes # (A) 1.72 X 10*3/uL (0.90-5.00); Lymphocytes % (A) 26.3 %; MCH 30.1 pg (27.0-32.0); MCHC 34.2 d/dL (32.0-37.0); MCV 88.2 FL (80.0-97.0); Mean Platelet Volume 10.4 FL (9.5-12.2); Monocytes # (A) 0.43 X 10*3/uL (0.20-1.00); Monocytes % (A) 6.6 %; NRBC Per 100 WBC 0 X 10*3/uL (0.00-0.01); Neutrophils # (A) 4.22 X 10*3/uL (1.80-7.70); Neutrophils % (A) 64.3 %; Platelet Count 178 X 10*3/uL (140-440); RBC 4.91 X 10*6/uL (4.40-5.60); RDW 12.3 % (11.5-14.5); WBC 6.55 X 10*3/uL (4.50-10.00)
[2023-02-04 20:49] LABS: BUN/Creat Ratio 9.33 Ratio (12.00-20.00); Blood Urea Nitrogen 8.4 mg/dL (9.0-27.0); Calcium 9.6 mg/dL (8.7-10.3); Carbon Dioxide 23.3 mmol/L (21.6-31.8); Chloride 104 mmol/L (96-109); Glucose 147 mg/dL (70-110); Potassium 4.1 mmol/L (3.5-5.5); Sodium 139 mmol/L (135-145)
== END | disposition home or self-care (01) ==
LOC: LABWHC1 13:09
PROVIDERS: ATTEND Urology
DX: Z01.812 Encounter for preprocedural laboratory examination (principal); D49.4 Neoplasm of unspecified behavior of bladder
CPT/HCPCS: 36415; 80048; 85025

== ENCOUNTER → 2024-02-18 | Outpatient (CLI) | payer BC ==
[2024-02-18 15:07] LABS: Blood Urea Nitrogen 10.8 mg/dL (9.0-27.0); Calcium 9.4 mg/dL (8.7-10.3); Chloride 107 mmol/L (96-109); Glucose 115 mg/dL (70-110); Potassium 4.3 mmol/L (3.5-5.5); Sodium 141 mmol/L (135-145)
[2024-02-18 15:15] LABS: HCT 43.1 % (39.6-50.0); HGB 14.9 g/dL (13.0-17.0); MCH 31.3 pg (27.0-32.0); MCHC 34.6 g/dL (32.0-37.0); MCV 90.5 FL (80.0-97.0); Mean Platelet Volume 10.6 FL (9.5-12.2); NRBC Per 100 WBC 0 X 10*3/uL (0.00-0.01); Platelet Count 165 X 10*3/uL (140-440); RBC 4.76 X 10*6/uL (4.40-5.60); RDW 12.3 % (11.5-14.5); WBC 6.29 X 10*3/uL (4.50-10.00)
== END | disposition home or self-care (01) ==
LOC: LABWHC1 10:20
PROVIDERS: ATTEND Urology
DX: Z01.818 Encounter for other preprocedural examination
CPT/HCPCS: 36415; 80048; 85027

== ENCOUNTER 2024-02-24 07:21 | Day surgery (SDC) | payer BC ==
--- NOTE | 2024-02-22 13:11 | P.GSHP ---
History of Present Illness H&P Date: 02/22/24 Chief Complaint: Bladder cancer Patient is a 53-year-old white male who developed gross hematuria in December 2022. He underwent evaluation and was found to have 2 left-sided bladder tumors. Resection revealed noninvasive urothelial carcinoma. He was treated with a 6- week course of intravesical Mitomycin-C, followed by monthly Mitomycin-C. He underwent resection of multiple small papillary tumors on the anterior bladder dome and bladder wall in October 2023. Pathology revealed low-grade noninvasive urothelial carcinoma. He was then treated with a 6-week course of intravesical gemcitabine. Recent cystoscopy has shown a 3 to 5 mm tumor on the right posterior bladder wall. He now comes for excisional biopsy with instillation of gemcitabine. - Cardiovascular Cardiovascular: Reports high blood pressure - Genitourinary (Male) Genitourinary: Denies dysuria, Denies hematuria Past Medical History Past Medical History: Cancer, Hyperlipidemia, Hypertension, Myocardial Infarction ([place]) Additional Past Medical History / Comment(s): bladder cancer Last Myocardial Infarction Date:: 03/2022 History of Any Multi-Drug Resistant Organisms: None Reported Past Surgical History: Heart Catheterization With Stent Additional Past Surgical History / Comment(s): 1 stent, Past Anesthesia/Blood Transfusion Reactions: No Reported Reaction Date of Last Stent Placement:: 03/2022 Smoking Status: Former smoker - Past Family History Father Family Medical History: No Reported History Medications and Allergies Home Medications Medication Instructions Recorded Confirmed Type Cholecalciferol [Vitamin D3 (25 50 mcg PO DAILY 03/27/22 02/18/24 History Mcg = 1000 Iu)] Glucosamine/Chondr Ramos A Sod [Osteo 1 tab PO DAILY 03/27/22 02/18/24 History Bi-Flex Caplet] Turmeric Root Extract [Turmeric] 500 mg PO DAILY 03/27/22 02/18/24 History Aspirin EC [Ecotrin Low Dose] 81 mg PO DAILY 30 Days tab 03/28/22 02/18/24 Rx Metoprolol Succinate (ER) [Toprol 25 mg PO DAILY 30 Days tab 03/28/22 02/18/24 Rx XL] Atorvastatin [Lipitor] 80 mg PO HS 02/09/23 02/18/24 History Allergies Allergy/AdvReac Type Severity Reaction Status Date / Time No Known Allergies Allergy Verified 02/18/24 14:40 Surgical - Exam - General well developed, well nourished, no distress - Respiratory normal respiratory effort - Abdomen Abdomen: soft, non tender, no guarding, no rigid, no rebound - Genitourinary normal penis with no external lesions, testicles non-tender - Psychiatric oriented to time, oriented to person, oriented to place, speech is normal, memory intact Assessment and Plan (1) Malignant neoplasm of bladder, unspecified Status: Acute Code(s): C67.9 - MALIGNANT NEOPLASM OF BLADDER, UNSPECIFIED SNOMED Code(s): 252323417 Plan: Cystoscopy with excisional biopsy, fulguration of biopsy site, instillation of intravesical Gemcitabine. The procedure has been reviewed in detail with the patient and his . They have been made aware of potential risks, which include anesthesia, bleeding, infection, bladder perforation, and postoperative voiding dysfunction.
[~2024-02-24 07:21] MED LIST: HYDROmorphone 0.5 MG/0.5 ML SYRINGE IVP PRN; LIDOCAINE 1% (10MG/ML) FOR IV START INTRADERMA PRN; MIDAZOLAM 2 MG/2 ML VIAL IV PRN; fentaNYL (PF) 50 MCG/ML 2 ML AMP IVP PRN
[2024-02-24] MEDS: DEXAMETHASONE SOD PHOSPHATE 4 MG/ML 1 ML VIAL IV ONE (07:56)
[2024-02-24] MEDS: ONDANSETRON 4 MG/2 ML VIAL IVP ONE (07:56)
[2024-02-24] MEDS: LACTATED RINGERS 1,000 ML IV SCH (07:57)
[2024-02-24] MEDS: IV FLUID CONTINUATION 1,000 ML IV ONE ×2 (08:28→09:45)
[2024-02-24 08:30] VITALS: TEMP 97
[2024-02-24] MEDS ORDERED: KETAMINE HCL IN 0.9 % NACL 50 MG/5 ML SYRINGE ONE (09:01)
[2024-02-24] MEDS ORDERED: PROPOFOL 10 MG/ML 20 ML VIAL IV ONE (09:01)
[2024-02-24] MEDS ORDERED: LIDOCAINE 1% INJ 10MG/ML (20 ML MDV) ONE (09:01)
[2024-02-24] MEDS ORDERED: MIDAZOLAM 2 MG/2 ML VIAL ONE (09:01)
[2024-02-24] MEDS ORDERED: fentaNYL (PF) 50 MCG/ML 2 ML AMP ONE (09:01)
--- NOTE | 2024-02-24 10:05 | P.OP ---
Date of Procedure: 02/24/24 Preoperative Diagnosis: Recurrent urothelial carcinoma the bladder Postoperative Diagnosis: Same Procedure(s) Performed: Cystoscopy with excisional biopsy, instillation of intravesical gemcitabine Anesthesia: MAC Surgeon: Inderjit Jarrell Estimated Blood Loss (ml): 0 IV fluids (ml): 100 Pathology: none sent Condition: stable Disposition: PACU Indications for Procedure: Patient is a 53-year-old white male who developed gross hematuria in December 2022. He underwent evaluation and was found to have 2 left-sided bladder tumors. Resection revealed noninvasive urothelial carcinoma. He was treated with a 6- week course of intravesical Mitomycin-C, followed by monthly Mitomycin-C. He underwent resection of multiple small papillary tumors on the anterior bladder dome and bladder wall in October 2023. Pathology revealed low-grade noninvasive urothelial carcinoma. He was then treated with a 6-week course of intravesical gemcitabine. Recent cystoscopy has shown a 3 to 5 mm tumor on the right posterior bladder wall. He now comes for excisional biopsy with instillation of gemcitabine. Operative Findings: 3 to 4 mm right posterior bladder wall tumor, papillary in appearance. Description of Procedure: The patient was taken to the operating room and placed in the dorsolithotomy position, with legs supported in Josesito stirrups. The external genitalia was prepped and draped sterilely. The 30 lens was used to introduce the 22-Burmese Stortz cystoscopic sheath through the urethra and into the bladder under direct vision. The prostatic urethra showed evidence of mild lateral lobe enlargement. The bladder was examined in its entirety. Both ureteral orifices were of normal anatomic location and configuration, and clear urine effluxed from both. A 3 to 4 mm papillary tumor was seen on the right posterior bladder wall. No tumors were seen elsewhere in the bladder. Using the cold cup biopsy forceps, the tumor was excised and sent to pathology. The Bugbee electrode was used to fulgurate the biopsy site as well as the adjacent urothelium. There was no concern of bladder perforation, and excellent hemostasis was attained. The bladder was irrigated several times prior to removing the cystoscope. An 18 Burmese Rosa catheter was then placed into the bladder, and after draining the bladder 2 g of gemcitabine were instilled into the bladder. The Rosa catheter was plugged. The patient tolerated the procedure well and was taken to the recovery room in stable condition.
[2024-02-24 11:01] VITALS: BP 126/76; PULSE 68; RESP 18
== END 2024-02-24 11:21 | disposition home or self-care (01) ==
LOC: OR 07:21
PROVIDERS: ATTEND Urology
DX: C67.9 Malignant neoplasm of bladder, unspecified
CPT/HCPCS: 88305

== ENCOUNTER → 2024-10-10 | Outpatient (CLI) | payer BC ==
--- NOTE | 2024-10-11 11:14 | CT ---
EXAMINATION TYPE: CT urogram wo/w con DATE OF EXAM: 10/10/2024 4:59 PM COMPARISON: 01/25/2023 CLINICAL INDICATION: Male, 54 years old with history of C67.9 BLADDER CANCER, TECHNIQUE: Axial images were obtained from above the diaphragm to the pubic rami in the axial plane a t 5 mm thick sections. Reconstructed images are reviewed on the computer in the coronal plane. Thre e-D reconstructed images performed through the renal collecting system are performed on a separate [employer] mputer by the technologist and reviewed on the computer. CONTRAST: mL of . Study performed DLP: mGycm, Automated exposure control for dose reduction was used. FINDINGS: Limited CT sections are obtained the lung bases. The lung bases are clear. CT ABDOMEN: Fat-containing periumbilical hernia is present. No loops of bowel are involved. Liver: Normal Spleen: Normal Pancreas: Normal Adrenal glands: The adrenal glands are normal. Gallbladder: Normal Kidneys: No masses are evident. No hydronephrosis is present. There appear to be Bilateral extrarena l pelves. No cysts are present. Delayed images were obtained through the kidneys, which remain unrem arkable. Renal calyces infundibula and ureters on sequential images appear normal. Other short sectio ns of ureter which are not visualized. Aorta: Vascular calcification is within the aorta. Inferior vena cava: Normal. CT PELVIS: Loops of bowel within the abdomen and pelvis are normal. There are loops of bowel which are incom pletely distended or lack oral contrast limiting their evaluation. Appendix: Normal as visualized. Urinary bladder: Urinary bladder wall appears normal. Inferior impression from the prostate is presen t. No filling defects or calcification within the bladder is evident. Previous left urinary bladder w all nodularity not identified on the current exam Genitourinary structures: Prostate is prominent and has some inferior impression on the urinary bladd er. Calcification is present. Osseous structures: No suspicious lytic or sclerotic lesions. IMPRESSION: 1. Prostate appears prominent with inferior impression on the bladder. Patient's reported bladder ne oplasm not discretely identified. No suspicious filling defects are identified. No hydronephrosis is evident. Bilateral extrarenal pelves are noted. [facility], Workstation: [id number]!, 10/11/2024 11:11 AM
== END | disposition home or self-care (01) ==
LOC: RADCTMAIN 15:25
PROVIDERS: ATTEND Urology
DX: C67.9 Malignant neoplasm of bladder, unspecified (principal); N28.89 Other specified disorders of kidney and ureter
CPT/HCPCS: 74178; 74400; Q9967